=== PATIENT | male | born 1960 | race Hispanic/Latino ===

== ENCOUNTER → 2018-07-13 | Outpatient (CLI) | payer MEDICARE ==
[~2018-07-13] MED LIST: ALLO300T2 PO; COLC0.6C3 PO; DONE10TA36 PO; ERGO500014 PO; FENO160T16 PO; FERROUS SULFATE PO; GLIP5TAB11 PO; IRON PO; MELO-106 PO; METF-446 PO; OMEG-75 PO; OMEP40CA37 PO; PRAV10TA39 PO; PREG150C PO; QUET300T44 PO; ROSU10TA PO; SERT100T12 PO; SULF500T8 PO; TRAZ150T79 PO
== END | disposition home or self-care (01) ==
LOC: RAH 08:08
PROVIDERS: ATTEND Orthopaedic Surgery
DX: M70.62 Trochanteric bursitis, left hip (principal)
CPT/HCPCS: 73721

== ENCOUNTER 2020-03-26 10:00 | Observation (INO) | payer MEDICARE ==
[~2020-03-26] VITALS: Ht 170.2 cm; Wt 89.9 kg
[~2020-03-26 10:00] MED LIST changes: +OMEP40CA13 PO; -OMEP40CA37 PO; -ROSU10TA PO; +ROSU10TA22 PO
[2020-03-26 11:53] LABS: APPEARANCE,URINE Clear (CLEAR); BILIRUBIN,URINE Negative (NEGATIVE); COLOR,URINE Yellow (YELLOW); GLUCOSE, URINE (UA) Negative (NEGATIVE); KETONES,URINE Negative (NEGATIVE); LEUKOCYTE ESTERASE ,URINE Negative (NEGATIVE); NITRATE,URINE Negative (NEGATIVE); OCCULT BLOOD,URINE Negative (NEGATIVE); PH,URINE 6.5 (5.0-8.0); PROTEIN,URINE POS 2+ mg/dL (NEGATIVE)
[2020-03-26 11:58] LABS: BASOPHILS % (AUTO) 0.3 % (0.0-5.0); EOSINOPHILS % (AUTO) 0.6 % (0.0-8.0); HEMATOCRIT 43.9 % (42-54); MEAN CORPUSCULAR HEMOGLOBIN 30.9 pg (27.0-33.0); MEAN CORPUSCULAR HGB CONC 34.4 g/dL (32.0-36.0); MONOCYTES % (AUTO) 3.6 % (3.0-13.0); NEUTROPHILS % (AUTO) 82.1 % (40.0-77.0); PLATELET COUNT (AUTO) 135 K/uL (130-400); RED BLOOD CELL COUNT(AUTO) 4.88 MIL/uL (4.50-6.20); RED CELL DISTRIBUTION WIDTH 13.2 % (11.0-15.5); WHITE BLOOD COUNT (AUTO) 7.8 K/uL (4.8-10.8)
[2020-03-26 12:05] LABS: CREATININE 1.2 mg/dL (0.5-1.5); POTASSIUM 4.7 mmol/L (3.5-5.1)
[2020-03-26 12:06] LABS: INR 1.01 (0.85-1.15); PROTHROMBIN TIME 10.9 SEC (9.6-11.6)
[2020-03-26 12:32] LABS: BACTERIA,URINE Rare /HPF (None Seen); RBC,URINE 0-1 /HPF (0-1); SQUAMOUS EPITHELIAL CELL,UR Rare /HPF (0-2); WBC,URINE 0-1 /HPF (0-1)
[2020-04-02] VITALS (22 sets, daily range): BP systolic 93–145; BP diastolic 56–85
[2020-04-02] MEDS: CEFAZOLIN SODIUM 1 GM VIAL IVP SCH ×3 (06:00→19:46)
[2020-04-02] MEDS ORDERED: DEXAMETHASONE SOD PHOSPHATE 10MG/ML 1ML VIAL ONE ×3 (09:00→11:53)
[2020-04-02] MEDS ORDERED: MIDAZOLAM HCL 1 MG/ML 2ML VIAL ONE (09:00)
[2020-04-02] MEDS ORDERED: LIDOCAINE PF 2% 5ML ABBOJECT ONE (09:00)
[2020-04-02] MEDS ORDERED: PROPOFOL 10 MG/ML 20ML VIAL IV ONE (09:01)
[2020-04-02] MEDS ORDERED: NEOSTIGMINE 5MG/5ML SYR IV ONE (09:01)
[2020-04-02] MEDS ORDERED: ONDANSETRON HCL 4 MG/2 ML VIAL ONE (09:01)
[2020-04-02] MEDS ORDERED: GLYCOPYRROLATE 1 MG/5 ML SYRINGE ONE (09:01)
[2020-04-02] MEDS ORDERED: ROCURONIUM 10MG/1ML SYR 10 MG/ML ML ONE (09:02)
[2020-04-02] MEDS ORDERED: ROPIVACAINE 0.5% 5MG/ML 30ML IJ ONE (09:02)
[2020-04-02] MEDS ORDERED: FENTANYL CITRATE PF 50 MCG/1 ML 2ML VIAL ONE ×3 (09:02→13:34)
[2020-04-02] MEDS ORDERED: SODIUM CHLORIDE 0.9% 1000ML 1,000 ML IV ONE (09:46)
[2020-04-02] MEDS ORDERED: CEFAZOLIN SODIUM 1 GM VIAL ONE (10:34)
[2020-04-02] MEDS ORDERED: FOLI1TAB85 PO (10:50)
[2020-04-02] MEDS ORDERED: SIMV10TA97 PO (10:50)
[2020-04-02] MEDS ORDERED: VITAMIN D PO (10:50)
[2020-04-02] MEDS ORDERED: VITAMIN D3 PO (10:50)
[2020-04-02] MEDS ORDERED: VITAMIN A PO (10:50)
[2020-04-02] MEDS ORDERED: FENO145T26 PO (10:50)
[2020-04-02] MEDS ORDERED: FOLIC ACID PO (10:50)
[2020-04-02] MEDS ORDERED: MEMA10TA55 PO (10:50)
[2020-04-02] MEDS ORDERED: ASPI-1197 PO (10:50)
[2020-04-02] MEDS ORDERED: TAMS-1 PO (10:50)
[2020-04-02] MEDS ORDERED: ALEN70TA69 PO (10:50)
--- NOTE | 2020-04-02 10:53 | NUR ---
MEDS DR. BENEDICT MADE AWARE PT TOOK ASPIRIN AND MELOXICAM ON THURSDAY MORNING. NO ORDERS RECEIVED.
--- NOTE | 2020-04-02 10:55 | NUR ---
SCRATCH SKIN TEAR NOTED TO LEFT DORSAL. PT STATES HE WAS GARDENING OUTSIDE AND TORE HIS HAND .
[2020-04-02] MEDS ORDERED: TRANEXAMIC ACID 1000MG/10ML ONE ×2 (11:21→14:02)
[2020-04-02] MEDS ORDERED: ESMOLOL HCL 10 MG/ML 10 ML VIAL ONE (12:36)
[2020-04-02] MEDS: SODIUM CHLORIDE 0.9% 1000ML 1,000 ML IV SCH ×2 (13:52→23:52)
[2020-04-02] MEDS ORDERED: DiphenhydrAMINE HCL 50 MG/ML VIAL IVP PRN (14:00)
[2020-04-02] MEDS ORDERED: OXYCODONE HCL 5 MG TAB PO PRN (14:00)
[2020-04-02] MEDS ORDERED: CALCIUM CARBONATE 500 MG TABLET PO PRN (14:00)
[2020-04-02] MEDS ORDERED: LIDOCAINE HCL-MPF 1% 2ML VIAL IV PRN (14:00)
[2020-04-02] MEDS ORDERED: POTASSIUM CHLORIDE 20 MEQ ERTAB PO PRN (14:00)
[2020-04-02] MEDS ORDERED: POTASSIUM CHLORIDE 20MEQ/100ML 100 ML IV PRN (14:00)
[2020-04-02] MEDS ORDERED: ONDANSETRON HCL 4 MG/2 ML VIAL IVP PRN (14:00)
[2020-04-02] MEDS ORDERED: TRAMADOL HCL 50 MG TABLET PO PRN (14:00)
[2020-04-02] MEDS: ACETAMINOPHEN EXTRA STRENGTH 500 MG TABLET PO SCH ×2 (14:00→21:23)
[2020-04-02] MEDS ORDERED: POTASSIUM CHLORIDE 10% ELIXIR 20 MEQ/15 ML UDCUP PO PRN (14:00)
[2020-04-02] MEDS ORDERED: FERROUS FUMARATE 324 MG TABLET PO PRN (14:00)
[2020-04-02] MEDS ORDERED: MEPERIDINE-PF 25 MG/ML SYG ONE ×2 (14:07→14:18)
[2020-04-02] MEDS: INSULIN HUMULIN R 100 UNIT/ML 3ML SQ SCH ×2 (16:30→21:16)
--- NOTE | 2020-04-02 17:36 | NUR ---
CM NOTE/ASIYA UNABLE TO MEET WITH PATIENT IN ROOM, NEXT OF KIN CALLED, MANNIE ALTAMIRANO. PER SIBLING, OK WITH ANY DME IN NETWORK AND ANY HOME HEALTH IN NETWORK. PER SIBLING, PATIENT HAS HAD HOME HEALTH BEFORE IN THE PAST BUT UNSURE OF COMPANY NAME. CM TO FOLLOW UP.
[2020-04-02] MEDS: KETOROLAC TROMETHAMINE 15MG/ML IV PRN (19:05)
[2020-04-02] MEDS: QUETIAPINE FUMARATE 100 MG TAB PO SCH (19:47)
[2020-04-02] MEDS: SERTRALINE HCL 50 MG TABLET PO SCH (19:47)
[2020-04-02] MEDS: SIMVASTATIN 10 MG TABLET PO SCH (19:47)
[2020-04-02] MEDS: MEMANTINE HCL 5 MG TABLET PO SCH (19:47)
[2020-04-02] MEDS: TRAZODONE HCL 50 MG TAB PO SCH (19:47)
[2020-04-02] MEDS: CELECOXIB 200 MG CAP PO SCH (19:47)
[2020-04-02] MEDS: PREGABALIN 75 MG CAPSULE PO SCH (19:47)
[2020-04-02] MEDS: ASPIRIN 81MG TAB.CHEW PO SCH (19:47)
[2020-04-02] MEDS: HYDROMORPHONE 1 MG/1 ML AMP IVP PRN ×2 (19:58→21:21)
[2020-04-02] MEDS: OXYCODONE HCL 5 MG TAB PO PRN (22:08)
[2020-04-03] MEDS: HYDROMORPHONE 1 MG/1 ML AMP IVP PRN ×8 (00:14→23:03)
[2020-04-03] MEDS: OXYCODONE HCL 5 MG TAB PO PRN ×5 (00:56→21:04)
[2020-04-03] MEDS: CEFAZOLIN SODIUM 1 GM VIAL IVP SCH (02:32)
--- NOTE | 2020-04-03 02:58 | NUR ---
ACTIVITY PATIENT ASSISTED TO EDGE OF BED TO DANGLE HIS LEGS OFF THE BED PER ORDERS. PATIENT TOLERATED WELL AND ASSISTED BACK TO BED.
[2020-04-03 03:43] LABS: HEMATOCRIT 34.3 % (42-54); MEAN CORPUSCULAR HEMOGLOBIN 30.6 pg (27.0-33.0); MEAN CORPUSCULAR HGB CONC 33.8 g/dL (32.0-36.0); MEAN CORPUSCULAR VOLUME 90.5 fL (79-99); RED BLOOD CELL COUNT(AUTO) 3.79 MIL/uL (4.50-6.20); RED CELL DISTRIBUTION WIDTH 13.2 % (11.0-15.5); WHITE BLOOD COUNT (AUTO) 8.9 K/uL (4.8-10.8)
[2020-04-03 03:56] LABS: CREATININE 1.5 mg/dL (0.5-1.5); POTASSIUM 5.3 mmol/L (3.5-5.1)
[2020-04-03 04:00] VITALS: BP 106/65
[2020-04-03] MEDS: ACETAMINOPHEN EXTRA STRENGTH 500 MG TABLET PO SCH ×3 (05:51→21:04)
[2020-04-03] MEDS: INSULIN HUMULIN R 100 UNIT/ML 3ML SQ SCH ×4 (05:53→20:33)
[2020-04-03 08:03] VITALS: BP 96/65
[2020-04-03] MEDS: MEMANTINE HCL 5 MG TABLET PO SCH ×2 (08:49→19:51)
[2020-04-03] MEDS: METFORMIN HCL 500 MG TABLET PO SCH ×2 (08:49→17:41)
[2020-04-03] MEDS: Vitamin B Complex/Vit C/Folic Acid PO SCH (08:49)
[2020-04-03] MEDS: POLYETHYLENE GLYCOL 3350 17 GM POWD.PACK PO SCH (08:49)
[2020-04-03] MEDS: PREGABALIN 75 MG CAPSULE PO SCH ×2 (08:49→19:50)
[2020-04-03] MEDS: TAMSULOSIN HCL 0.4 MG CAP.ER.24H PO SCH (08:49)
[2020-04-03] MEDS: DONEPEZIL HCL 5 MG TAB PO SCH (08:49)
[2020-04-03] MEDS: ALLOPURINOL 300 MG TABLET PO SCH (08:49)
[2020-04-03] MEDS: SERTRALINE HCL 50 MG TABLET PO SCH ×2 (08:50→19:51)
[2020-04-03] MEDS: CELECOXIB 200 MG CAP PO SCH ×2 (08:50→19:51)
[2020-04-03] MEDS: PANTOPRAZOLE SODIUM 40 MG TABLET.DR PO SCH (08:50)
[2020-04-03] MEDS: FOLIC ACID 1 MG TABLET PO SCH (08:50)
[2020-04-03] MEDS: ASPIRIN 81MG TAB.CHEW PO SCH ×2 (08:50→19:50)
[2020-04-03] MEDS: KETOROLAC TROMETHAMINE 15MG/ML IV PRN (08:52)
[2020-04-03] MEDS: VITAMIN A 2400 MCG PO SCH (08:53)
[2020-04-03] MEDS: **HM**[Vitamin D3] 1,000 UNITS PO SCH (08:53)
[2020-04-03] MEDS: FENOFIBRATE NANOCRYSTALLIZED 145 MG TAB PO SCH (09:00)
[2020-04-03] MEDS ORDERED: IRON 65 MG PO SCH (09:00)
[2020-04-03] MEDS ORDERED: ASPIRIN 81MG TAB.CHEW PO SCH (09:00)
[2020-04-03] MEDS: SODIUM CHLORIDE 0.9% 1000ML 1,000 ML IV SCH (09:52)
[2020-04-03] MEDS ORDERED: SODIUM POLYSTYRENE SULFONATE 15 GM/60 ML ML ONE (09:55)
--- NOTE | 2020-04-03 10:00 | NUR ---
DCP CM met with pt discussed dc plans. Pt is independent prior to admission, lives at home with spouse. Has a provider 4-5hrs/day, shower chair, cane. Denies nay other equipments/services. Feels safe to go back home, still drives, spouse able to assist with transportation and needs as necessary. Agreeable for home w/HH and DME. DC plan to home w/HH and DME. CM to cont to follow up. Addendum: 04/03/20 at 1637 by BI STOCKTON LVN CM Amended: Links added.
--- NOTE | 2020-04-03 11:10 | NUR ---
[id number] patient signed [facility] Letter, I faxed [facility] Letter to [phone] and placed in chart under consent tab.
--- NOTE | 2020-04-03 11:15 | NUR ---
CM Note: [facility] pending approval CM obtained consent for [facility]. Faxed order, clinicals, PT, confirmation received. Pt pending approval. Primary nurse aware. CM to cont to follow up.
--- NOTE | 2020-04-03 11:16 | NUR ---
CM Note: [facility] pending approval and delivery CM obtained consent for [facility]. Faxed order, clinicals, PT, confirmation received. Pt pending approval and delivery for standard walker no wheels and 3 in 1 chair. Primary nurse aware. CM to cont to follow up.
[2020-04-03 11:22] VITALS: BP 109/59
--- NOTE | 2020-04-03 15:13 | NUR ---
CM Note: [facility] DME approval, pending to be deliverery CM spoke to Nicolle martinez/[facility], pt has approval, tank truck driver will deliver standard walker no wheels and 3 in 1 chair iby ED today. Primary nurse aware, will have someone lease picker DME once able to drop off. CM to cont to follow up.
--- NOTE | 2020-04-03 15:19 | NUR ---
CM Note: [facility] approval CM spoke to Melita martinez/[facility], pt has approval. Primary nurse aware. Pt safe to DC once MD clear. CM to cont to follow up. CM informed Dr Herrera pt has approval and HH and DME, made aware DME enroute to be delivered today. CM to cont to follow up.
[2020-04-03 16:19] VITALS: BP 111/59
[2020-04-03] MEDS: TRAZODONE HCL 50 MG TAB PO SCH (19:51)
[2020-04-03] MEDS: QUETIAPINE FUMARATE 100 MG TAB PO SCH (19:51)
[2020-04-03] MEDS: SIMVASTATIN 10 MG TABLET PO SCH (19:51)
[2020-04-03 19:57] VITALS: BP 96/52
[2020-04-03 23:36] VITALS: BP 96/62
[2020-04-04] MEDS: HYDROMORPHONE 1 MG/1 ML AMP IVP PRN ×6 (00:14→12:15)
[2020-04-04] MEDS: OXYCODONE HCL 5 MG TAB PO PRN ×2 (02:42→08:10)
[2020-04-04 03:57] VITALS: BP 101/58
[2020-04-04] MEDS: ACETAMINOPHEN EXTRA STRENGTH 500 MG TABLET PO SCH ×2 (04:53→12:15)
[2020-04-04] MEDS: INSULIN HUMULIN R 100 UNIT/ML 3ML SQ SCH ×2 (05:50→11:29)
[2020-04-04 08:10] VITALS: BP 124/68
[2020-04-04] MEDS: Vitamin B Complex/Vit C/Folic Acid PO SCH (08:10)
[2020-04-04] MEDS: CELECOXIB 200 MG CAP PO SCH (08:10)
[2020-04-04] MEDS: PREGABALIN 75 MG CAPSULE PO SCH (08:10)
[2020-04-04] MEDS: PANTOPRAZOLE SODIUM 40 MG TABLET.DR PO SCH (08:10)
[2020-04-04] MEDS: MEMANTINE HCL 5 MG TABLET PO SCH (08:10)
[2020-04-04] MEDS: SERTRALINE HCL 50 MG TABLET PO SCH (08:10)
[2020-04-04] MEDS: DONEPEZIL HCL 5 MG TAB PO SCH (08:10)
[2020-04-04] MEDS: FOLIC ACID 1 MG TABLET PO SCH (08:11)
[2020-04-04] MEDS: POLYETHYLENE GLYCOL 3350 17 GM POWD.PACK PO SCH (08:11)
[2020-04-04] MEDS: ASPIRIN 81MG TAB.CHEW PO SCH (08:11)
[2020-04-04] MEDS: ALLOPURINOL 300 MG TABLET PO SCH (08:11)
[2020-04-04] MEDS: FENOFIBRATE NANOCRYSTALLIZED 145 MG TAB PO SCH (08:11)
[2020-04-04] MEDS: METFORMIN HCL 500 MG TABLET PO SCH (08:11)
[2020-04-04] MEDS: TAMSULOSIN HCL 0.4 MG CAP.ER.24H PO SCH (08:11)
[2020-04-04] MEDS: **HM**[Vitamin D3] 1,000 UNITS PO SCH (08:11)
[2020-04-04] MEDS: VITAMIN A 2400 MCG PO SCH (08:11)
[2020-04-04] MEDS: KETOROLAC TROMETHAMINE 15MG/ML IV PRN (10:06)
[2020-04-04 11:14] VITALS: BP 122/66
[2020-04-04 15:42] VITALS: BP 97/61
[2020-04-05] MEDS ORDERED: BISACODYL 10 MG SUPP.RECT RC PRN (14:00)
[2020-04-09] MEDS ORDERED: VITAMIN D 1.25 MG PO SCH (09:00)
== END 2020-04-04 20:17 | disposition home health service (06) ==
LOC: EDSTATUS 10:00 → DAHIP 04-02 07:36 → EDSTATUS 04-02 10:00 → 3AH 04-02 15:00
PROVIDERS: ADMIT Orthopaedic Surgery; ATTEND Orthopaedic Surgery
DX: M17.12 Unilateral primary osteoarthritis, left knee (principal); Z20.828 Contact with and (suspected) exposure to other viral communicable diseases; M25.562 Pain in left knee; D16.12 Benign neoplasm of short bones of left upper limb; E11.9 Type 2 diabetes mellitus without complications; I10 Essential (primary) hypertension; E78.00 Pure hypercholesterolemia, unspecified; Z87.39 Personal history of other diseases of the musculoskeletal system and connective tissue
CPT/HCPCS: 27447; 36415 ×3; 80048 ×2; 81001; 82948 ×10; 84132 ×2; 85025; 85027; 85610; 87641; 88304; 88305; 88311 ×2; 96361 ×3; 96374; 96375; 96376 ×3; 97039 ×4; 97116 ×4; 97161; 97530 ×3; A4215; A4221; A4222; A4223; A4600; A4649 ×3; A4663; A4930 ×2; A5120; A9272; C1776; G0378 ×19; G8978; G8979; G8980; G8981; G8982; G8983; J0690 ×4; J1100 ×3; J1170 ×17; J1815 ×2; J1885 ×3; J2001; J2175 ×2; J2250; J2405; J2704; J2710; J2795; J3010 ×3; J3490 ×4; J7030 ×3; U0003

== ENCOUNTER → 2024-01-13 | Outpatient (CLI) | payer OTHER, MEDICARE ==
[~2024-01-13] MED LIST changes: +ALEN70TA80 PO; +ASPI-1197 PO; -COLC0.6C3 PO; +DONE-53 PO; -DONE10TA36 PO; -ERGO500014 PO; +FENO145T26 PO; -FENO160T16 PO; -FERROUS SULFATE PO; +FOLI1TAB85 PO; +FOLIC ACID PO; -GLIP5TAB11 PO; +MEMA10TA21 PO; -OMEG-75 PO; -OMEP40CA13 PO; +OMEP40CA21 PO; -PRAV10TA39 PO; +QUET300T19 PO; -QUET300T44 PO; -ROSU10TA22 PO; +SERT-440 PO; -SERT100T12 PO; +SIMV10TA97 PO; -SULF500T8 PO; +TAMS-1 PO; +VITAMIN A PO; +VITAMIN D PO; +VITAMIN D3 PO
== END | disposition home or self-care (01) ==
LOC: SHCH 09:38
PROVIDERS: ATTEND Student in an Organized Health Care Education/Training Program
DX: I87.2 Venous insufficiency (chronic) (peripheral) (principal); E11.51 Type 2 diabetes mellitus with diabetic peripheral angiopathy without gangrene; E11.65 Type 2 diabetes mellitus with hyperglycemia; I10 Essential (primary) hypertension; E78.5 Hyperlipidemia, unspecified; G89.29 Other chronic pain; Z79.899 Other long term (current) drug therapy
CPT/HCPCS: 93925; 93970

== ENCOUNTER → 2024-04-26 | Outpatient (CLI) | payer OTHER, MEDICARE | END | disposition home or self-care (01) | LOC: SHCH 10:52 | PROVIDERS: ATTEND Student in an Organized Health Care Education/Training Program | DX: I11.9 Hypertensive heart disease without heart failure (principal) | CPT/HCPCS: 93306 ==